=== PATIENT | male | born 1980 | race African-American/Black ===

== ENCOUNTER → 2017-06-17 | Outpatient (CLI) | payer OTHER ==
[~2017-06-17] VITALS: Ht 193 cm; Wt 197.0 kg
[2017-06-17 15:30] VITALS: BP 158/89; PULSE 75; Ht 193 cm; Wt 197.0 kg
== END | disposition home or self-care (01) ==
LOC: C.NEUR 14:55
PROVIDERS: ATTEND Physician Assistant
DX: G47.30 Sleep apnea, unspecified (principal)